=== PATIENT | male | born 1965 | race Caucasian/White ===

== ENCOUNTER 2016-11-30 04:46 | Emergency (ER) | payer BC ==
[~2016-11-30] VITALS: Ht 185.4 cm; Wt 100.0 kg
[2016-11-30 04:48] VITALS: TEMP 36.7; Ht 185.4 cm; Wt 100.0 kg
[2016-11-30] MEDS ORDERED: SODIUM CHLORIDE 0.9% 1000ML 1,000 ML IV STA (05:09)
[2016-11-30] MEDS ORDERED: ONDANSETRON INJ 2 MG/ML 2 ML VIAL IV STA (05:09)
[2016-11-30] MEDS ORDERED: HYDROmorphone INJ 0.5 MG/0.5 ML SYR IV STA (05:09)
[2016-11-30 05:19] LABS: BASO % 0.5 %; BASO ABS # 0.02 K/uL (0-0.2); COMPLETE YES; EOS % 1.2 %; HEMATOCRIT 41.5 % (42-52); LYMPH % 43.7 %; LYMPH ABS # 1.78 K/uL (1.2-3.4); MEAN CELL VOLUME 90.6 fL (80-100); MEAN CORPUSCULAR HEMOGLOBIN 32.3 pg (25-34); MEAN CORPUSCULAR HGB CONC 35.7 g/dl (32-36); MEAN PLATELET VOLUME 9.5 fL (7.4-10.4); MONO % 8.4 %; NEUT % 46.2 %; PLATELET COUNT 226 K/uL (130-400); RED BLOOD COUNT 4.58 M/uL (4.7-6.1); WHITE BLOOD COUNT 4.07 K/uL (4.8-10.8)
[2016-11-30 05:32] LABS: PARTIAL THROMBOPLASTIN RATIO 0.9; PROTHROMBIN TIME (PATIENT) 10.7 SECONDS (9.0-12.0)
[2016-11-30] MEDS ORDERED: TAMS0.4C38 PO (05:32)
[2016-11-30] MEDS ORDERED: LISD40CA PO (05:33)
[2016-11-30] MEDS ORDERED: BUPRTAB51 PO (05:34)
[2016-11-30 05:35] LABS: BLOOD UREA NITROGEN 14 mg/dl (7-18); BUN/CREATININE RATIO 12.3 (10-20); CALCIUM 8.7 mg/dl (8.5-10.1); CARBON DIOXIDE 25 mmol/L (21-32); CHLORIDE 104 mmol/L (98-107); GLUCOSE 120 mg/dl (70-99); MAGNESIUM 2.1 mg/dl (1.8-2.4); POTASSIUM 3.6 mmol/L (3.5-5.1); SODIUM 140 mmol/L (136-145)
[2016-11-30] MEDS ORDERED: TADA10TA PO (05:35)
[2016-11-30] MEDS ORDERED: VNTHFA/IN INH (05:36)
[2016-11-30] MEDS ORDERED: DOCU-94 PO (05:36)
[2016-11-30] MEDS ORDERED: FAMO20TA11 PO (05:37)
[2016-11-30] MEDS ORDERED: L-ME1CAP PO (05:38)
[2016-11-30] MEDS ORDERED: GUAN2TAB6 PO (05:39)
[2016-11-30 05:46] LABS: ALKALINE PHOSPHATASE 75 U/L (45-117); ALT/SGPT 36 U/L (12-78); AST/SGOT 13 U/L (15-37)
[2016-11-30] MEDS ORDERED: HYDROCODONE/ACETAMOPHEN 5/325MG TAB PO STA (05:52)
[2016-11-30 06:50] LABS: URINE APPEARANCE CLOUDY (CLEAR); URINE BILIRUBIN NEG (NEG); URINE COLOR YELLOW; URINE NITRITE NEG (NEG); URINE SPECIFIC GRAVITY 1.008 (1.000-1.030); UROBILINOGEN NEG (NEG)
[2016-11-30 06:53] LABS: MANUAL MICROSCOPIC REQUIRED? NO; REVIEW REQ? NO
--- NOTE | 2016-11-30 07:13 | DIAGNOSTIC IMAGING REPORT ---
HEAD CT NONCONTRAST CT DOSE: HISTORY: fall syncope TECHNIQUE: Multiaxial CT images of the head were performed without the use of intravenous contrast. Automated exposure control was utilized for this study. Comparison: None. Findings: The calvarium and skull base are intact. The ventricles and sulci are within normal limits. There is no mass, hematoma, midline shift, or acute infarct. Impression: No acute intracranial abnormality. Please refer to the dedicated facial CT for further evaluation of the facial fractures. Electronically signed by: Fernando De La Fuente M.D. 11/30/2016 7:12 AM Dictated Date/Time: 11/30/2016 7:08 AM
[2016-11-30] MEDS ORDERED: NORCO 5/325MG HOME PACK PO ONE (07:15)
[2016-11-30] MEDS ORDERED: AMOXICILLIN 250 MG CAP PO ONE ×2 (07:15)
[2016-11-30] MEDS ORDERED: HYDR-5688 PO (07:27)
[2016-11-30] MEDS ORDERED: AMOX500T3 PO (07:27)
--- NOTE | 2016-11-30 07:33 | DIAGNOSTIC IMAGING REPORT ---
MAXILLOFACIAL CT CT DOSE: 852.56 mGy.cm HISTORY: Trauma fall, syncope, left facial trauma TECHNIQUE: Multiaxial CT images of the maxillofacial region were performed and reformatted in the coronal plane without the use of contrast. COMPARISON: None. FINDINGS: Nondisplaced fracture left zygomatic arch. Nondisplaced fracture left orbital margin. Slightly distracted fracture anterior wall left maxillary sinus. Slightly depressed fracture lateral wall left maxillary sinus. Nondisplaced cortical fracture inferior orbital margin. Right facial area appears unremarkable. IMPRESSION: Left facial fractures the bulk of which are nondisplaced Electronically signed by: Kain Amezcua M.D. 11/30/2016 7:31 AM Dictated Date/Time: 11/30/2016 7:24 AM
[2016-11-30 07:42] VITALS: BP 139/92; PULSE 72; O2SAT 98
--- NOTE | 2016-11-30 08:13 | DIAGNOSTIC IMAGING REPORT ---
RIGHT HAND MIN 3 VIEWS ROUTINE, RIGHT WRIST MIN 3 VIEWS ROUTINE CLINICAL HISTORY: Fall with right hand and wrist pain. COMPARISON STUDY: None. FINDINGS: No fracture or dislocation within the right hand or right wrist. Mild soft tissue swelling along the ulnar side of the wrist. The scaphoid appears intact. No radiopaque foreign bodies. Small focal density at the proximal scaphoid favors a bone island. IMPRESSION: No fracture or dislocation within the right hand or right wrist. Electronically signed by: Fernando De La Fuente M.D. 11/30/2016 8:11 AM Dictated Date/Time: 11/30/2016 8:08 AM
--- NOTE | 2016-11-30 08:17 | EMERGENCY ROOM VISIT NOTE ---
History Report prepared by Obed: Mariya Junior Under the Supervision of: Dr. Aric Cueto M.D. First contact with patient: 05:04 Chief Complaint: SYNCOPE Stated Complaint: PASSED OUT,HIT HEAD,NAUSEA History of Present Illness The patient is a 51 year old male who presents to the Emergency Room with complaints of a syncopal episode that occurred this morning. The patient states that he was having urinary frequency throughout the night and had gotten up several times to urinate. As he was finishing his stream during an episode of urination, he became lightheaded and lost consciousness. His found the patient laying on the floor face down. Afterwards, the patient developed a headache, left facial pain, right wrist and hand pain, and nausea. He also had a bloody nose. He notes that his nausea has improved some since the event. His current discomfort is an 8/10 in severity. The patient has had syncopal episodes in the past. He notes that he had a mild headache yesterday that went away and a decreased appetite last night, but denies any other recent illnesses. Pt denies fevers, chills, diaphoresis, visual changes, neck pain, chest pain, breathing difficulties, vomiting, abdominal pain, back pain, melena , hematochezia, numbness, weakness, lymphadenopathy, rash, or other complaints. Source of History: patient Onset: this morning Position: other (global) Quality: other (syncope) Timing: other (episode) Associated Symptoms: + LOC, + headache, + nausea, + urinary symptoms ( frequency) Note: Other symptoms: epistaxis, right wrist/hand pain, left facial pain Review of Systems See HPI for pertinent positives and negatives. A total of ten systems were reviewed and were otherwise negative. Family History No pertinent family history stated. Social History Smoking Status: Never Smoker Marital Status: Housing Status: lives with family Current/Historical Medications Scheduled Amoxicillin (Amoxil), 500 MG PO TID Bupropion (Wellbutrin-Xl), 300 MG PO DAILY Docusate Sodium (Colace), 200 MG PO BID Famotidine (Pepcid), 20 MG PO BID Guanfacine Hcl (Tenex), 2 MG PO HS I-Svdaqdvdhjpc-Qtfuc (Deplin 15), 1 CAP PO DAILY Lisdexamfetamine Dimesylate (Vyvanse), 40 MG PO DAILY Tadalafil (Cialis), 5 MG PO DAILY Tamsulosin Hcl (Flomax), 0.4 MG PO HS Scheduled PRN Albuterol Hfa (Ventolin Hfa), 2 PUFFS INH Q4 PRN for Wheezing Hydrocodone/Acetaminophen 5MG/325MG (Leslie 5MG/325MG), 1-2 TABS PO Q6H PRN for Pain Allergies Coded Allergies: Latex (Verified Allergy, Mild, Unknown, 11/30/16) Prochlorperazine (Verified Adverse Reaction, Unknown, dystonic reaction, ) Physical Exam Vital Signs Date Time Temp Pulse Resp B/P Pulse Ox O2 Delivery O2 Flow Rate FiO2 11/30/16 07:42 72 14 139/92 98 11/30/16 07:01 73 17 144/96 96 Room Air 11/30/16 06:00 75 17 139/87 11/30/16 05:33 Room Air 11/30/16 05:05 69 11/30/16 04:48 36.7 72 20 137/89 94 Room Air Physical Exam GENERAL: Awake, alert, uncomfortable appearing, in no acute distress HEAD: Some tenderness and deformity to the left maxilla. No acevedo sign. No raccoon eyes. EYES: Normal conjunctiva. PERRL. EARS: External ears normal. Right TM normal. Left TM normal. NOSE: Some dried blood at the nares. Nontender. OROPHARYNX: Lips, tongue, and mucosa unremarkable. No erythema or exudate. NECK: Supple. Full range of motion. No tracheal deviation or JVD. No posterior midline tenderness. No step offs noted. RESPIRATORY: CTA bilaterally CARDIAC: Regular rate, normal rhythm. ABDOMEN: Inspection reveals no abnormalities. Soft, non distended. No tenderness to palpation. No hernias. BACK: No midline step offs or tenderness to palpation. Unremarkable. PELVIS: Stable to rock. SKIN: Normal. LYMPH: No adenopathy. MUSCULOSKELETAL: Bruising over the volar aspect of the right wrist. Some tenderness of the thenar eminence of the right hand. No snuff box tenderness. Remainder of the right upper extremity is atraumatic. Left upper extremity and both lower extremities are atraumatic. NEURO: GCS 15. Normal sensorium. No sensory or motor deficits noted. Medical Decision & Procedures ER Provider Diagnostic Interpretation: X-ray results per my interpretation: Right hand x-ray 3 view: No evidence of fracture or dislocation Right wrist x-ray 3 view: No evidence of fracture or dislocation. Other radiology results as stated below per my review and radiologist interpretation. CT HEAD: No ICH, mass effect, or edema. No skull fracture. CT FACIAL: Nondisplaced fracture of the left zygoma arch. Fracture involving the anterior aspect of the left periorbital floor without entrapment. Fracture of the posterolateral wall of the left orbit, centrally depressed. No other acute displaced fractures. Blood within the left maxillary sinus. Globes are intact. Retrobulbar soft tissues are unremarkable. Radiologist: César Peña MD Laboratory Results 11/30/16 05:10 Red Blood Count 4.58, Mean Corpuscular Volume 90.6, Mean Corpuscular Hemoglobin 32.3, Mean Corpuscular Hemoglobin Concent 35.7, Mean Platelet Volume 9.5, Neutrophils (%) (Auto) 46.2, Lymphocytes (%) (Auto) 43.7, Monocytes (%) (Auto) 8.4, Eosinophils (%) (Auto) 1.2, Basophils (%) (Auto) 0.5, Neutrophils # (Auto) 1.88, Lymphocytes # (Auto) 1.78, Monocytes # (Auto) 0.34, Eosinophils # (Auto) 0.05, Basophils # (Auto) 0.02 11/30/16 05:10 Test 11/30/16 05:10 11/30/16 06:30 White Blood Count 4.07 K/uL (4.8-10.8) Red Blood Count 4.58 M/uL (4.7-6.1) Hemoglobin 14.8 g/dL (14.0-18.0) Hematocrit 41.5 % (42-52) Mean Corpuscular Volume 90.6 fL (80-100) Mean Corpuscular Hemoglobin 32.3 pg (25-34) Mean Corpuscular Hemoglobin Concent 35.7 g/dl (32-36) Platelet Count 226 K/uL (130-400) Mean Platelet Volume 9.5 fL (7.4-10.4) Neutrophils (%) (Auto) 46.2 % Lymphocytes (%) (Auto) 43.7 % Monocytes (%) (Auto) 8.4 % Eosinophils (%) (Auto) 1.2 % Basophils (%) (Auto) 0.5 % Neutrophils # (Auto) 1.88 K/uL (1.4-6.5) Lymphocytes # (Auto) 1.78 K/uL (1.2-3.4) Monocytes # (Auto) 0.34 K/uL (0.11-0.59) Eosinophils # (Auto) 0.05 K/uL (0-0.5) Basophils # (Auto) 0.02 K/uL (0-0.2) RDW Standard Deviation 39.6 fL (36.4-46.3) RDW Coefficient of Variation 11.9 % (11.5-14.5) Immature Granulocyte % (Auto) 0.0 % Immature Granulocyte # (Auto) 0.00 K/uL (0.00-0.02) Prothrombin Time 10.7 SECONDS (9.0-12.0) Prothromb Time International Ratio 1.0 (0.9-1.1) Activated Partial Thromboplast Time 24.5 SECONDS (21.0-31.0) Partial Thromboplastin Ratio 0.9 Anion Gap 11.0 mmol/L (3-11) Est Creatinine Clear Calc Drug Dose 99.9 ml/min Estimated GFR () 90.2 Estimated GFR (Non- 77.9 BUN/Creatinine Ratio 12.3 (10-20) Calcium Level 8.7 mg/dl (8.5-10.1) Magnesium Level 2.1 mg/dl (1.8-2.4) Total Bilirubin 0.5 mg/dl (0.2-1) Direct Bilirubin 0.1 mg/dl (0-0.2) Aspartate Amino Transf (AST/SGOT) 13 U/L (15-37) Alanine Aminotransferase (ALT/SGPT) 36 U/L (12-78) Alkaline Phosphatase 75 U/L (45-117) Troponin I < 0.015 ng/ml (0-0.045) Total Protein 7.1 gm/dl (6.4-8.2) Albumin 3.8 gm/dl (3.4-5.0) Thyroid Stimulating Hormone (TSH) 1.660 uIu/ml (0.300-4.500) Urine Color YELLOW Urine Appearance CLOUDY (CLEAR) Urine pH 8.0 (4.5-7.5) Urine Specific Rand 1.008 (1.000-1.030) Urine Protein NEG (NEG) Urine Glucose (UA) NEG (NEG) Urine Ketones NEG (NEG) Urine Occult Blood NEG (NEG) Urine Nitrite NEG (NEG) Urine Bilirubin NEG (NEG) Urine Urobilinogen NEG (NEG) Urine Leukocyte Esterase NEG (NEG) Urine WBC (Auto) 1-5 /hpf (0-5) Urine RBC (Auto) 0-4 /hpf (0-4) Urine Hyaline Casts (Auto) 1-5 /lpf (0-5) Urine Epithelial Cells (Auto) 10-20 /lpf (0-5) Urine Bacteria (Auto) NEG (NEG) Laboratory results reviewed by me Medications Administered Medications (Trade) Dose Ordered Sig/Inez Route Start Time Stop Time Status Last Admin Dose Admin Sodium Chloride (Nss 1000ml) 1,000 ml @ 999 mls/hr Q1H1M STAT IV 11/30/16 05:09 11/30/16 06:09 DC 11/30/16 05:28 999 MLS/HR Ondansetron HCl (Zofran Inj) 4 mg NOW STAT IV 11/30/16 05:09 11/30/16 05:12 DC 11/30/16 05:29 4 MG Hydromorphone HCl (Dilaudid Inj) 0.5 mg NOW STAT IV 11/30/16 05:09 11/30/16 05:12 DC 11/30/16 05:29 0.5 MG Acetaminophen/ Hydrocodone Bitart (Leslie 5/325 Tab) 1 tab NOW STAT PO 11/30/16 05:52 11/30/16 05:54 DC 11/30/16 05:59 1 TAB Amoxicillin (Amoxil Cap) 500 mg NOW ONCE PO 11/30/16 07:15 11/30/16 07:18 DC 11/30/16 07:38 500 MG Amoxicillin (Amoxil Cap) 500 mg NOW ONCE PO 11/30/16 07:15 11/30/16 07:18 DC 11/30/16 07:39 500 MG Acetaminophen/ Hydrocodone Bitart (Leslie 5/325mg Home Pack) 1 homepack UD ONCE PO 11/30/16 07:15 11/30/16 07:18 DC 11/30/16 07:38 1 HOMEPACK ECG Indication: syncope Rate (beats per minute): 63 Rhythm: sinus with SA Findings: no acute ischemic change, left axis deviation, no ectopy, other (LVH) ED Course 0506: The patient was evaluated in room B12. A complete history and physical exam was performed. 0509: Ordered Dilaudid Inj 0.5 mg IV, Zofran Inj 4 mg IV, NSS 1000 ml @ 999 mls/ hr IV. 0552: Per nursing staff, the medications administered made the patient feel spacey and did not improve his symptoms. Ordered Leslie 5/325 1 tab PO. 0607: I reassessed the patient and updated him on results so far. 0715: I reevaluated the patient. Discussed results and discharge instructions: He verbalized understanding and agreement. The patient is ready for discharge. Ordered Leslie 5/325 mg 1 homepack PO, Amoxicillin 500 mg PO. Medical Decision Prior records/ancillary studies reviewed. Triage Nursing notes reviewed and agree them. Additional history obtained from the family. The patient's history was concerning for syncope. Differential diagnosis: Etiologies such as infection, hypoglycemia, electrolyte abnormalities, cardiac sources, intracerebral event, toxicologic, neurologic, as well as others were entertained. Physical examination: As above. No neck findings. Left facial tenderness. ER treatment provided: IV hydration with normal saline IV Dilaudid IV Zofran Oral Leslie On reassessment the patient felt better. Oral amoxicillin Diagnostics interpretation by me: ECG: Sinus rhythm as above The labs revealed an unremarkable CBC, chemistry panel, troponin, TSH, magnesium , and urinalysis Imaging studies: X-rays and CT scans above The patient notes having prior episodes of syncope. He notes he has BPH. He was straining to urinate and became lightheaded. Realize that he should've sat down but tried to stand up and became very lightheaded and passed out. He struck the left side of his face suffering maxillary fractures but there is no globe entrapment. He has no intracranial injury. His hand and wrist x-rays were unremarkable. The patient felt much better after the above treatment. I discussed ENT referral. The patient was provided his imaging. He was given amoxicillin and Leslie here and by prescription. Patient was also given a work no. If he has any issues he will come back to the emergency department otherwise follow up with his primary physician as well as his ENT referral By the evaluation outlined above emergent etiologies such as infection, hypoglycemia, electrolyte abnormalities, cardiac sources, intracerebral event, toxicologic, neurologic,as well as others were deemed relatively unlikely. The patient and were informed about the findings as listed above. All questions were answered and they were pleased with the treatment. Return instructions were outlined and the patient was discharged in stable condition. Outpatient prescription management: Amoxicillin Leslie The chart was completed utilizing [employer] Speech voice recognition software. Grammatical errors, random word insertions, pronoun errors, and incomplete sentences are an occasional consequence of this system due to software limitations, ambient noise, and hardware issues. Any formal questions or concerns about the content, text, or information contained within the body of this dictation should be directly addressed to the physician for clarification. [place] Drug Monitoring Program Search Results: patient reviewed within database, no issues identified Impression Primary Impression: Left maxillary fracture Additional Impressions: Contusion of right hand Syncope Scribe Attestation The scribe's documentation has been prepared under my direction and personally reviewed by me in its entirety. I confirm that the note above accurately reflects all work, treatment, procedures, and medical decision making performed by me. Departure Information Dispostion Home / Self-Care Prescriptions Amoxicillin (AMOXIL) 500 Mg Tab 500 MG PO TID, #28 TAB Prov: Aric Cueto MD 11/30/16 Hydrocodone/Acetaminophen 5MG/325MG (Leslie 5MG/325MG) Tab 1-2 TABS PO Q6H Y for Pain, #20 TAB Prov: Aric Cueto MD 11/30/16 Referrals Herberth Mcdowell MD (PCP) Tan Barragan D.O. Patient Instructions My [facility] Additional Instructions Diagnosis: 1. Left maxillary sinus fracture 2. Syncope 3. Right hand contusion Ibuprofen(Motrin, Advil) may be used for fever or pain. Use 600mg every six hours as needed. Take with food. Avoid using more than 2400mg in a 24 hour period. Do not use 2400mg per day for more than three consecutive days without physician direction. Prolonged inappropriate use can lead to stomach upset or ulcers. Hydrocodone/acetaminophen 5/325mg: Take 1-2 pills every 6 hours as needed for pain. Avoid additional Acetaminophen/Tylenol, alcohol, operating machinery or dangerous equipment, working on ladders or roofs, DRIVING, or situations where being under the influence may be dangerous. It is recommended to use a stool softener such as Colace, 100mg twice daily while taking this medication to avoid constipation. Amoxicillin 500 mg: one capsule 3 times a day for 10 days. All antibiotics can cause diarrhea. If this occurs and you feel worse or it does not resolve in 1- 2 days follow up with your doctor or return to the Emergency Department as this could be signs of serious underlying problems. Any medication can cause an allergic reaction, stop the pills immediately and return to the ER for rash, hives, breathing difficulties, or swelling. Rest and drink plenty of fluids as tolerated. Do not blow your nose. Continue current medications. Return to the ER for passing out, chest pain, headache, persistent vomiting, fevers, abdominal pain, chest pains, difficulty breathing, black or bloody stools, worsening of your condition, or as needed. Follow up with your primary physician in 2-3 days for a recheck of your current condition Your x-rays will be reviewed by our radiologist's and if there is any additional findings you will be notified. Follow-up with Dr. Barragan of ENT. The number is listed below. Problem Qualifiers
== END 2016-11-30 07:46 | disposition home or self-care (01) ==
LOC: C.EDB 04:47
DX: S02.401A Maxillary fracture, unspecified side, initial encounter for closed fracture (principal); S60.211A Contusion of right wrist, initial encounter; R55 Syncope and collapse; W18.30XA Fall on same level, unspecified, initial encounter; Y92.002 Bathroom of unspecified non-institutional (private) residence as the place of occurrence of the external cause; R35.0 Frequency of micturition; N40.0 Benign prostatic hyperplasia without lower urinary tract symptoms